=== PATIENT | female | born 1975 | race Caucasian/White ===

== ENCOUNTER 2016-10-23 10:47 | Emergency (ER) | payer SELFPAY ==
[2016-10-23 11:04] VITALS: BP 122/74; PULSE 65; TEMP 98.3; BMI 27.6
[2016-10-23 12:54] LABS: BASOPHIL 1.2 % (0-2.0); EOSINOPHIL 6.4 % (0-4.5); MCH 25.2 pg (25.7-33.7); MCHC 31.6 g/dl (32.0-36.0); MEAN CELL VOLUME 79.9 fl (80-96); MEAN PLT VOLUME 8.9 fl (7.5-11.1); PLATELET COUNT 304 K/MM3 (134-434); RDW 16.9 % (11.6-15.6); URINE APPEARANCE CLOUDY; URINE BILIRUBIN NEGATIVE (NEGATIVE); URINE BLOOD NEGATIVE (NEGATIVE); URINE COLOR LTYELLOW; URINE GLUCOSE (UA) NEGATIVE (NEGATIVE); URINE KETONE NEGATIVE (NEGATIVE); URINE NITRITE NEGATIVE (NEGATIVE); URINE PROTEIN NEGATIVE (NEGATIVE); URINE UROBILINOGEN NEGATIVE mg/dL (0.2-1.0); WHITE BLOOD COUNT 7.3 K/mm3 (4.0-10.0)
--- NOTE | 2016-10-23 12:58 | PDOC ---
History of Present Illness - History of Present Illness Initial Comments: 10/23/16 13:07 The patient is a 41 year old female with history of hypertension and prediabetes who presents to the ED with multiple complaints. The patient reports 2 weeks of daily, intermittent dizziness. Her dizziness is worse with standing and positional changes and resolves on its own. 2 days ago, the patient began to experience chest pain that is midsternal, sharp, and intermittent. She denies any associated shortness of breath or diaphoresis. Of note, the patient also reports intermittent right sided tingling sensation, nausea, and vomiting. She states these do not seem to be related to her other symptoms. She denies numbness or focal weakness. She denies abdominal pain, diarrhea, or constipation. She denies blurred vision or headache. Today she felt persistently dizzy/lightheaded, prompting her to come to the ED for evaluation. She did not take any medications for her symptoms today. FMH is significant for maternal history of NC at 7 years old. <Bethany Doll - Last Filed: 10/23/16 13:16> - General History Source: Patient Exam Limitations: No Limitations <Ajay Blackwell - Last Filed: 10/23/16 16:17> - General Chief Complaint: Syncope/Near Syncope Stated Complaint: LIGHTHEADED, NAUSEA Time Seen by Provider: 10/23/16 11:45 Past History <Bethany Doll - Last Filed: 10/23/16 13:16> - Past Medical History Diabetes: (PRE DIABETIC) - Surgical History Cholecystectomy: Yes - Psycho/Social/Smoking Cessation Hx Suicidal Ideation: No Smoking History: Never smoked <Ajay Blackwell - Last Filed: 10/23/16 16:17> - Past Medical History Allergies/Adverse Reactions: Allergies Allergy/AdvReac Type Severity Reaction Status Date / Time No Known Allergies Allergy Verified 10/23/16 10:59 Home Medications: Ambulatory Orders Cephalexin [Keflex] 500 mg PO BID #14 capsule 10/23/16 Naproxen [Naprosyn -] 500 mg PO BID PRN #14 tablet 10/23/16 Review of Systems - Review of Systems Able to Perform ROS?: Yes Comments:: 10/23/16 13:13 GENERAL/CONSTITUTIONAL: No fever or chills. No weakness. HEAD, EYES, EARS, NOSE AND THROAT: No change in vision. No ear pain or discharge. No sore throat CARDIOVASCULAR: +chest pain. No peripheral edema or shortness of breath. RESPIRATORY: No cough, wheezing, or hemoptysis. GASTROINTESTINAL: +Nausea, vomiting. No abdominal pain. No diarrhea or constipation. GENITOURINARY: No dysuria, frequency, or change in urination. MUSCULOSKELETAL: No joint or muscle swelling or pain. No neck or back pain. SKIN: No rash NEUROLOGIC: +Dizziness, right sided tingling. No headache, loss of consciousness , or blurred vision. ENDOCRINE: No increased thirst. No abnormal weight change. HEMATOLOGIC/LYMPHATIC: No anemia, easy bleeding, or history of blood clots. ALLERGIC/IMMUNOLOGIC: No hives or skin allergy. <Bethany Doll - Last Filed: 10/23/16 13:16> *Physical Exam - Vital Signs Last Vital Signs Temp Pulse Resp BP Pulse Ox 98.3 F 65 19 122/74 100 10/23/16 11:00 10/23/16 11:00 10/23/16 11:00 10/23/16 11:00 10/23/16 11:00 - Physical Exam Comments: 10/23/16 13:05 GENERAL: Awake, alert, and fully oriented, in no acute distress HEAD: No signs of trauma EYES: PERRLA, EOMI, sclera anicteric, conjunctiva clear ENT: Auricles normal inspection, hearing grossly normal, nares patent, oropharynx clear without exudates. Moist mucosa NECK: Normal ROM, supple, no lymphadenopathy, JVD, or masses LUNGS: Breath sounds equal, clear to auscultation bilaterally. No wheezes, and no crackles HEART: Regular rate and rhythm, normal S1 and S2, no murmurs, rubs or gallops ABDOMEN: Soft, nontender, normoactive bowel sounds. No guarding, no rebound. No masses EXTREMITIES: Normal range of motion, no edema. No clubbing or cyanosis. No cords, erythema, or tenderness NEUROLOGICAL: Cranial nerves II through XII grossly intact. Normal speech, normal gait. Sensation intact to light touch throughout. 5/5 strength x 4 extremities. Normal [id number]. Marques-Hallpike negative. SKIN: Warm, Dry, normal turgor, no rashes or lesions noted. <Bethany Doll - Last Filed: 10/23/16 13:16> - Vital Signs Last Vital Signs Temp Pulse Resp BP Pulse Ox 98.3 F 65 19 122/74 100 10/23/16 11:00 10/23/16 11:00 10/23/16 11:00 10/23/16 11:00 10/23/16 11:00 <Ajay Blackwell - Last Filed: 10/23/16 16:17> Heart Score/ECG Review #1 ECG reviewed & interpreted by me at: 14:40 10/23/16 14:49 NSR 63, no std/vonnie, t wave flat III, QTC 429 msec <Ajay Blackwell - Last Filed: 10/23/16 16:17> ED Treatment Course - LABORATORY CBC & Chemistry Diagram: 10/23/16 12:00 10/23/16 12:00 <Bethany Doll - Last Filed: 10/23/16 13:16> - LABORATORY CBC & Chemistry Diagram: 10/23/16 12:00 10/23/16 12:00 - RADIOLOGY Radiology Studies Ordered: Category Date Time Status HEAD CT WITHOUT CONTRAST [CT] Stat CT Scan 10/23/16 12:30 Ordered CHEST PA & LAT [RAD] Stat Radiology 10/23/16 12:30 Ordered <Ajay Blackwell - Last Filed: 10/23/16 16:17> Medical Decision Making - Medical Decision Making 10/23/16 12:58 A portion of this note was documented by scribe services under my direction. I have reviewed the details of the note, within reason, and agree with the documentation with the following case summary and management plan written by me. Patient treated in the ED. Nursing notes are reviewed and incorporated into the medical decision-making. Vital signs reviewed. Peripheral IV access obtained by the nurse, laboratory studies are drawn and sent, reviewed and interpreted by myself. Vital Signs Temp Pulse Resp BP Pulse Ox 98.3 F 65 19 122/74 100 10/23/16 11:00 10/23/16 11:00 10/23/16 11:00 10/23/16 11:00 10/23/16 11:00 41-year-old female patient with history of hypertension, prediabetes presents to the emergency department with multiple complaints. Patient reports 2 weeksOf intermittent lightheadedness and vertiginous-like symptoms. Patient with standing up or turn around felt dizzy briefly and resolve on its own. This has occurred daily. Patient thinks she is drink plenty of fluids. 2 days ago, patient felt intermittent fleeting sharp midsternal chest pain with no associated shortness of breath, diaphoresis. Give report unrelated nausea and vomiting. Also unrelated, patient reports intermittent right sided paresthesias that would come and go. No numbness or weakness. Stated that her symptoms improved but today she fell persistent lightheaded area did not take any medications. Came to the ED for further ALLERGY. Patient reports family history of a mother with an NC at age 50. Denies smoking. The symptoms are quite atypical for acute coronary syndrome, cardiac etiology or neurological etiology. Patient does feel lightheaded when sitting or standing up. We'll obtain head CT, EKG, labs, urinalysis. Give IV fluids. If workup is negative, this can be pursued as an outpatient workup. 10/23/16 16:13 CAT scan the head reviewed. No acute findings. Chest x-ray reviewed. No acute findings. EKG is normal and reassuring. CBC, BMP 10/23/16 12:00 10/23/16 12:00 CMP Sodium 137 mmol/L (136-145) 10/23/16 12:00 Potassium 4.4 mmol/L (3.5-5.1) 10/23/16 12:00 Chloride 104 mmol/L (98-107) 10/23/16 12:00 Carbon Dioxide 24 mmol/L (21-32) 10/23/16 12:00 Anion Gap 9 (8-16) 10/23/16 12:00 BUN 11 mg/dL (7-18) 10/23/16 12:00 Creatinine 0.7 mg/dL (0.55-1.02) 10/23/16 12:00 Creat Clearance w eGFR > 60 (>60) 10/23/16 12:00 Random Glucose 91 mg/dL (74-106) 10/23/16 12:00 Calcium 8.4 mg/dL (8.5-10.1) L 10/23/16 12:00 Magnesium 2.2 mg/dL (1.8-2.4) 10/23/16 12:00 Total Bilirubin 0.3 mg/dL (0.2-1.0) 10/23/16 12:00 AST 25 U/L (15-37) 10/23/16 12:00 ALT 42 U/L (12-78) 10/23/16 12:00 Alkaline Phosphatase 63 U/L (45-117) 10/23/16 12:00 Creatine Kinase 111 IU/L (26-192) 10/23/16 12:00 Troponin I 0.02 ng/ml (0.00-0.05) 10/23/16 12:00 Total Protein 7.5 g/dl (6.4-8.2) 10/23/16 12:00 Albumin 3.7 g/dl (3.4-5.0) 10/23/16 12:00 Urine Test Results Urine Color Ltyellow 10/23/16 12:00 Urine Appearance Cloudy 10/23/16 12:00 Urine pH 5.0 (5.0-8.0) 10/23/16 12:00 Urine Protein Negative (NEGATIVE) 10/23/16 12:00 Urine Glucose (UA) Negative (NEGATIVE) 10/23/16 12:00 Urine Ketones Negative (NEGATIVE) 10/23/16 12:00 Urine Blood Negative (NEGATIVE) 10/23/16 12:00 Urine Nitrite Negative (NEGATIVE) 10/23/16 12:00 Urine Bilirubin Negative (NEGATIVE) 10/23/16 12:00 Ur Leukocyte Esterase 2+ (NEGATIVE) H 10/23/16 12:00 Urine RBC 3 /hpf (0-3) 10/23/16 12:00 Urine WBC 18 /hpf (3-5) 10/23/16 12:00 Ur Epithelial Cells Moderate /hpf (FEW) 10/23/16 12:00 Patient reports feeling significantly better with IV fluids. The patient has a urinary tract infection which may be contributing to the patient's symptoms. We' ll write a prescription for Keflex. Patient feels comfortable going home. She is encouraged drink plenty fluids and rest. A copy of her workup was given. She' ll follow-up with her doctor. I discussed the physical exam findings, ancillary test results and final diagnoses with the patient. I answered all of the patient's questions. The patient was satisfied with the care received and felt comfortable with the discharge plan and treatment plan. The patient will call their primary care physician within 24 hours to arrange follow-up and will return to the Emergency Department with any new, persistant or worsening symptoms. <Ajay Blackwell - Last Filed: 10/23/16 16:17> *DC/Admit/Observation/Transfer - Attestations Scribe Attestion: 10/23/16 13:15 Documentation prepared by Bethany Doll, acting as medical library assistant for Ajay Blackwell MD. <Bethany Doll - Last Filed: 10/23/16 13:16> - Discharge Dispostion Admit: No <Ajay Blackwell - Last Filed: 10/23/16 16:17> Diagnosis at time of Disposition: UTI (urinary tract infection) Qualifiers: Urinary tract infection type: site unspecified Hematuria presence: without hematuria Qualified Code(s): N39.0 - Urinary tract infection, site not specified - Discharge Dispostion Disposition: HOME Condition at time of disposition: Improved - Prescriptions Prescriptions: Cephalexin [Keflex] 500 mg PO BID #14 capsule Naproxen [Naprosyn -] 500 mg PO BID PRN #14 tablet PRN Reason: Pain/Fever - Patient Instructions Printed Discharge Instructions: DI for Urinary Tract Infection (UTI) Additional Instructions: Please drink plenty of fluids and rest. Take 500 mg naproxen every 12 hours as needed for pain/fever. You have an urine infection. Please take the antibiotics (keflex) every 12 hours for 1 week. - Post Discharge Activity Work/School Note: Back to Work
[2016-10-23] MEDS ORDERED: SODIUM CHLORIDE 1,000 ML IV STA (12:59)
[2016-10-23] MEDS ORDERED: MECLIZINE HCL 25 MG TABLET (FP) PO ONE (12:59)
[2016-10-23] MEDS ORDERED: METOCLOPRAMIDE HCL INJECTION 10 MG/2 ML VIAL IVPB ONE (12:59)
[2016-10-23] MEDS ORDERED: ACETAMINOPHEN 325 MG TABLET (FP) PO ONE (12:59)
[2016-10-23] MEDS ORDERED: ACETAMINOPHEN 325 MG TABLET (FP) ONE (13:02)
[2016-10-23] MEDS ORDERED: METOCLOPRAMIDE HCL INJECTION 10 MG/2 ML VIAL ONE (13:02)
[2016-10-23] MEDS ORDERED: MECLIZINE HCL 25 MG TABLET (FP) ONE (13:02)
[2016-10-23 13:11] LABS: URINE LEUK ESTERASE 2+ (NEGATIVE)
[2016-10-23 13:24] LABS: ALBUMIN 3.7 g/dl (3.4-5.0); ANION GAP 9 (8-16); BILIRUBIN,TOTAL 0.3 mg/dL (0.2-1.0); CALCIUM 8.4 mg/dL (8.5-10.1); CO2 24 mmol/L (21-32); CREATININE 0.7 mg/dL (0.55-1.02); GLUCOSE,RANDOM 91 mg/dL (74-106); MAGNESIUM 2.2 mg/dL (1.8-2.4); SGOT/AST 25 U/L (15-37); SGPT/ALT 42 U/L (12-78); TOT PROT 7.5 g/dl (6.4-8.2)
[2016-10-23 13:27] LABS: ALK PHOS 63 U/L (45-117); CPK 111 IU/L (26-192); TROPONIN I 0.02 ng/ml (0.00-0.05)
[2016-10-23 14:32] LABS: INR 1.03 (0.82-1.09); PROTHROMBIN TIME (PATIENT) 11.3 SEC (9.98-11.88)
[2016-10-23 14:35] LABS: ACTIVATED PTT 29.5 SECONDS (26.9-34.4)
[2016-10-23 14:52] LABS: URINE RBC 3 /hpf (0-3); URINE WBC 18 /hpf (3-5)
[2016-10-23] MEDS ORDERED: CEPHALEXIN MONOHYDRATE 500 MG CAPSULE (UD) PO ONE (16:11)
[2016-10-23] MEDS ORDERED: CEPHALEXIN MONOHYDRATE 250 MG CAPSULE (FP) ONE (16:15)
--- NOTE | 2016-10-24 13:29 | EKG ---
Test Reason : Blood Pressure : / mmHG Vent. Rate : 063 BPM Atrial Rate : 063 BPM P-R Int : 150 ms QRS Dur : 070 ms QT Int : 420 ms P-R-T Axes : 065 016 039 degrees QTc Int : 429 ms NORMAL SINUS RHYTHM NORMAL ECG NO PREVIOUS ECGS AVAILABLE Confirmed by HIPOLITO BONILLA, KATY ([id number]) on 10/24/2016 1:29:21 PM Referred By: Confirmed By:KATY MCMILLAN MD
== END 2016-10-23 16:23 | disposition home or self-care (01) ==
LOC: JER 10:47
PROC: 3E033GC Introduction of Other Therapeutic Substance into Peripheral Vein, Percutaneous Approach (ICD-10-PCS; principal; 2016-10-23)
PROC: 3E0337Z Introduction of Electrolytic and Water Balance Substance into Peripheral Vein, Percutaneous Approach (ICD-10-PCS; 2016-10-23)
DX: N39.0 Urinary tract infection, site not specified (principal); I10 Essential (primary) hypertension
CPT/HCPCS: 36415; 70450-TC; 71020-TC; 80053; 81003; 81015; 83735; 84484; 84703; 85025; 85610; 85730; 93005; 93010; 99285-25